=== PATIENT | male | born 1940 | race Caucasian/White ===

== ENCOUNTER 2017-05-09 04:57 | Emergency (ER) | payer SELFPAY ==
[~2017-05-09] VITALS: Ht 177.8 cm; Wt 95.3 kg
[2017-05-09 05:03] VITALS: BP 0/0
[2017-05-09] MEDS ORDERED: SODIUM BICARBONATE 8.4% INJ 50ML SYRINGE IV ONE (05:03)
[2017-05-09] MEDS ORDERED: EPINEPHrine HCL 1 MG/10 ML SYRG IV ONE (05:03)
== END 2017-05-09 08:42 | disposition expired ==
LOC: EDBD 04:57 → EDSEX 04:57 → ER 05:02
DX: I46.9 Cardiac arrest, cause unspecified (principal); Z85.59 Personal history of malignant neoplasm of other urinary tract organ; Z85.118 Personal history of other malignant neoplasm of bronchus and lung
CPT/HCPCS: 31500; 92950; 99291; J0171